=== PATIENT | female | born 1985 | race Two or more races ===

== ENCOUNTER 2024-12-10 22:41 | Emergency (ER) | payer OTHER ==
[~2024-12-10] VITALS: Ht 167.6 cm; Wt 74.8 kg
[2024-12-10] MEDS ORDERED: LEVO125T PO (23:06)
[2024-12-10] MEDS: IV NS 1000 ML 1,000 ML IV ONE (23:31)
[2024-12-10 23:32] LABS: BASOPHILS % (AUTO) 0.2 % (0.0-2.0); EOSINOPHILS % (AUTO) 0.2 % (0.0-7.0); HEMATOCRIT 38.9 % (31.2-41.9); HEMOGLOBIN 12.8 g/dL (10.9-14.3); LYMPHOCYTES # (AUTO) 1.2 K/uL (0.8-4.8); LYMPHOCYTES % (AUTO) 15.3 % (20.5-51.5); MEAN CORPUSCULAR HEMOGLOBIN 28.2 uug (24.7-32.8); MEAN CORPUSCULAR HGB CONC 33 g/dL (32.3-35.6); MONOCYTES # (AUTO) 0.2 K/uL (0.1-1.30); MONOCYTES % (AUTO) 3.1 % (0.0-11.0); NEUTROPHILS # (AUTO) 6.5 K/uL (1.8-8.9); NEUTROPHILS % (AUTO) 81.2 % (38.5-71.5); PLATELET COUNT (AUTO) 368 K/uL (179-408); RED BLOOD CELL COUNT(AUTO) 4.53 MIL/uL (3.63-4.92)
[2024-12-10 23:34] LABS: DIFFERENTIAL COMMENT 1
[2024-12-10] MEDS ORDERED: ONDANSETRON 4 MG/2 ML VIAL ONE (23:34)
[2024-12-10 23:39] LABS: CREATININE 0.7 mg/dL (0.6-1.3); POTASSIUM 3.7 mmol/L (3.5-5.1)
[2024-12-10] MEDS: ONDANSETRON 4 MG/2 ML VIAL IV ONE (23:44)
[2024-12-10 23:51] LABS: ALBUMIN 4.1 g/dL (3.4-5.0); BILIRUBIN,TOTAL 0.4 mg/dL (0.2-1.0); MAGNESIUM 2.2 mg/dL (1.8-2.4); TOTAL PROTEIN, SERUM 7.7 g/dL (6.4-8.2)
[2024-12-11] MEDS ORDERED: ONDANSETRON 4 MG/2 ML VIAL ONE (00:11)
[2024-12-11] MEDS ORDERED: ONDA4TAB5 PO (00:12)
[2024-12-11] MEDS: ONDANSETRON 4 MG/2 ML VIAL IV ONE (00:22)
[2024-12-11 00:26] VITALS: BP 140/70; TEMP 98; O2SAT 98
== END 2024-12-11 00:27 | disposition home or self-care (01) ==
LOC: ER 22:47
DX: R42 Dizziness and giddiness (principal); R11.2 Nausea with vomiting, unspecified; R06.02 Shortness of breath; R94.31 Abnormal electrocardiogram [ECG] [EKG]; Z88.5 Allergy status to narcotic agent; Z90.89 Acquired absence of other organs
CPT/HCPCS: 99285; 96374; 71045; 96361 ×3; 80053; 83880; 83735; 85025; 84484; 36415; 93005; 96376; J2405 ×2; J7040; A4606; A4663